=== PATIENT | female | born 1965 | race Caucasian/White ===

== ENCOUNTER 2024-04-18 22:15 | Inpatient (IN) | payer SELFPAY ==
[2024-04-18 15:45] VITALS: BP 207/66
--- NOTE | 2024-04-18 16:24 | ED.GENMED ---
History of Present Illness
General
Chief Complaint: Abdominal Symptoms
Source: patient
Exam Limitations: none
Time Seen by Provider: 04/18/24 15:57
Nursing documentation reviewed up to this point in time: agreed with
History of Present Illness
History of Present Illness:
Patient to ED with complaint of n/v. Symptoms started yesterday. Denies fever but reports chills, diaphoresis. Taking po zofran without improvement. Reports upper abdominal pain. No diarrhea. No urinary symptoms. Brought to ED by EMS for eval.
Past History
Past History
ED Past Medical History: CAD, HTN, Hypercholesterolemia and AR (2004)
ED Past Surgical History: Cardiac (Stent 2004) and Orthopedic
Social History
Tobacco: Smoker
Alcohol: None
Drug: None
Personal:
Living: alone
Review of Systems
Review of Systems
Allergies reviewed?: Yes
All Other Systems: ROS reviewed and negative except as documented in HPI and ROS
Constitutional: Reports fatigue and chills
Respiratory: Reports no symptoms
Cardiac: Reports diaphoresis
ABD/GI: Reports abdominal pain, nausea and vomiting
: Reports no symptoms
Musculoskeletal: Reports no symptoms
Skin: Reports no symptoms
Neurological: Reports weakness
Psychiatric: Reports no symptoms
Phy Exam
General Physical Exam
General Presentation: moderate distress
General age: appears stated age
General Skin: warm and dry
General Habitus: normal
General Mental: alert
Cardiovascular Exam
Cardiovascular Exam: regular rate/rhythm and no edema
Pulmonary Exam
Pulmonary Exam: no respiratory distress and chest non tender
Gastrointestinal Exam
Gastrointestinal Exam: normal bowel sounds, soft, no organomegaly, no pulsatile mass, non distended and no cva tenderness
Palpation: generalized: Moderate tenderness
Musculoskeletal Exam
Musculoskeletal Exam: full ROM and neuro vasc intact
Skin Exam
Skin Exam: normal color, warm/dry and no rash
Psychiatric Exam
Psychiatric Exam: normal mood/affect
Course
Orders/Labs/Results
Orders:
Orders
04/18/24 16:03
Urinalysis Reflex To Culture Urgent
0.9% Sodium Chloride 1000 ml [Nss] 1,000 ml IV BOLUS
04/18/24 16:29
Prochlorperazine [Compazine] 10 mg IV NOW STA
04/18/24 16:30
CT Abd/pelvis W Iv Cont Urgent
Comment:
Reason For Exam: upper abd. pain, vomiting, unable to tolerate po
04/18/24 16:53
Complete Blood Count/With Diff Urgent
Influenza A+B Rapid Molecular Urgent
ANJALI Source: Nasal Swab
Specimen Description:
04/18/24 18:24
Comprehensive Metabolic Panel Urgent
Lipase Urgent
04/18/24 20:36
Amoxicillin 875 mg/Clav 125 mg [Augmentin 875 mg/125 mg] 1 tablet PO NOW STA
04/18/24 20:44
Ondansetron Injectable [Zofran] 4 mg .ROUTE .[facility]
04/18/24 20:49
Ondansetron Injectable [Zofran] 4 mg IV NOW STA
04/18/24 21:36
LevoFLOXacin 500 MG/100 ML [Levaquin] 500 mg in 100 ml IV NOW
MetroNIDAZOLE 500 MG/100 ML [Flagyl 500 mg] 100 ml IV NOW
04/18/24 21:38
Prochlorperazine [Compazine] 10 mg IV NOW STA
04/18/24 21:45
0.9% Sodium Chloride 1000 ml [Nss] 1,000 ml IV 125 mls/hr
04/18/24 21:54
Potassium Chloride [KCl] 40 meq Dextrose 5%/Water 250 ml [D5w] 250 ml IV NOW
04/18/24 21:58
Admit/Transfer Patient As Directed
Co-Sign Provider:
Level of Care: Inpatient admission
Assign to:: Medical/Surgical
Physician / Group: savage
Diagnosis: diverticulitis
Reason for Hospitalization: diverticulitis
Expected length of stay greater than two midnights?: Yes
ELOS- Estimated Length of Stay in days: 3
I certify the patient meets the requirements for IP care: Yes
04/18/24 21:59
Code Status As Directed
Resuscitation Status: Full Code
PRN Pain Medication Management As Directed
May give lesser potent ordered pain med per pt: Yes
preference::
Protocol:: Medication orders for pain may be administered in a
manner that supports deferring to patient preference
when the pt is:
- Requesting an ordered lesser potent pain medication.
Least to most potent pain medications are defined
as: acetaminophen < NSAID < tramadol < opioids
(morphine, oxycodone, hydromorphone).
- Requesting a lesser dose of the same medication IF
ORDERED.
- Requesting a less intrusive route of administration
if both routes are prescribed by the provider (PO <
IV).
04/18/24 22:06
EKG [Electrocardiogram (*1)] Stat
Reason for Study: QTc Monitoring
04/18/24 23:10
Acetaminophen [Tylenol] 650 mg PO Q4HPRN PRN
Bisacodyl [Dulcolax] 10 mg RECTAL [id number] PRN
Docusate W/Senna [Senokot-S] 1 tablet PO BIDPRN PRN
HydrALAZINE [Apresoline] 10 mg IV Q6HPRN PRN
Ondansetron Injectable [Zofran] 4 mg IV Q6HPRN PRN
Piperacillin/Tazo 3.375 Gram [Zosyn] 3.375 gram in 50 ml IV Q6H
Polyethylene Glycol Powder [Miralax] 17 grams PO DAILYPRN PRN
04/18/24 23:10
Activity As Directed
Activity Level: As Tolerated
Vital Signs As Directed
Frequency: Per unit guidelines
DX Deep Vein Thrombosis Video Routine
04/18/24 23:21
HYDROmorphone [Dilaudid] 1 mg IV Q4HPRN PRN
04/19/24 Breakfast
NPO
Allow oral meds: Yes
Allow clear liquids: No
Basic Metabolic Panel IN AM
Complete Blood Count/With Diff IN AM
04/19/24 08:00
Aspirin Low Dose EC [Aspir Low (Enteric Coated)] 81 mg PO DAILY
Carvedilol [Coreg] 12.5 mg PO BID
Losartan [Cozaar] 100 mg PO DAILY
04/19/24 18:00
Atorvastatin [Lipitor] 10 mg PO QPM
Enoxaparin Sodium [Lovenox] 40 mg SC QPM
04/20/24 06:00
Basic Metabolic Panel IN AM
Complete Blood Count/With Diff IN AM
04/21/24 06:00
Basic Metabolic Panel IN AM
Complete Blood Count/With Diff IN AM
04/22/24 06:00
Basic Metabolic Panel IN AM
Abnormal Lab Results
04/18/24 04/18/24
16:53 18:24
WBC 14.6 H 10^3/uL
(4.8-10.8)
RBC 5.59 H 10^6/uL
(4.20-5.40)
MCV 80.1 L fL
(81.0-99.0)
Abs Immat Gran (auto) 0.1 H 10^3/uL
(0-0.05)
Absolute Neuts (auto) 13.1 H 10^3/uL
(1.4-6.5)
Neutrophils % 90.1 H %
(42.2-75.2)
Lymphocytes % 8.0 L %
(20.5-51.1)
Monocytes % 1.1 L %
(1.7-9.3)
Potassium 3.3 L mmol/L
(3.5-5.1)
Carbon Dioxide 31 H mmol/L
(22-30)
Glucose 157 H mg/dl
(70-99)
04/18/24 16:53
04/18/24 18:24
Vital Signs
Initial and Last Documented VS:
Initial Vital Signs
Temp Pulse Resp BP Pulse Ox
98.9 F 77 20 207/66 96
04/18/24 15:45 04/18/24 15:45 04/18/24 15:45 04/18/24 15:45 04/18/24 15:45
Last Documented Vital Signs
Temp Pulse Resp BP Pulse Ox
98.9 F 84 16 168/69 92
04/18/24 15:45 04/18/24 20:55 04/18/24 20:55 04/18/24 20:55 04/18/24 20:55
*Radiology
Radiology exam reviewed: radiology read reviewed
*Pulse Oximetry
Patient hypoxic: no
*Critical Care Note
Total Time (30-74mins, 75-104mins- exclusive of procedures): Not Applicable
Update Note
Update Note:
Patient to ED wtih generalized abd. pain x 24 hours. +vomiting. GIven IVF, compazine in ED with temporary improvement. She remains afebrile. Ct reveals diverticulitis. SHe continues to be unable to tolerate po fluids/meds. Will admit to
hospitalist service. IV levaquin and flagyl started in dept.
ED Attending Note
-
Portions of this chart may have been created with voice recognition software.� Occasional wrong word or��sound alike� substitutions may have occurred due to the inherent limitations of voice recognition software.
Discharge Plan
Departure
Patient Disposition: Admit
Date of Disposition: 04/18/24
Time of Disposition: 21:36
Presentation/result/management discussed w/ accepting MD/DO: Hospitalist
Patient with high blood pressure during this ER visit?: No
Condition: Good
Covid-19: Not Applicable
Discharge Problem:
Diverticulitis
Interventions
Interventions:
*Risk Screen - Suicide Last Done: 04/18/24 15:45
*General Assessment Last Done: 04/18/24 20:57
*Neglect/Abuse Screening Last Done: 04/18/24 20:57
*ED- Fall Risk Assessment Last Done: 04/18/24 20:57
*ED COVID-19 Vaccine History Last Done: 04/18/24 20:57
MF-Hhqjph-Ykysxnytdo Assessment Last Done: 04/18/24 16:59
[2024-04-18] MEDS: NSS 1000 IV ×2 (16:55→22:29)
[2024-04-18] MEDS: COMPAZINE 10 MG IV ×2 (16:55→22:33)
[2024-04-18 16:56] VITALS: BMI 55.3
[2024-04-18 17:03] VITALS: BP 157/73
[2024-04-18 17:21] LABS: % Basophils 0.3 % (0-2); % Immature Granulocytes 0.5 % (0-0.5); % Monocytes 1.1 % (1.7-9.3); % Neutrophils 90.1 % (42.2-75.2); Absolute Immature Granulocytes 0.1 10^3/uL (0-0.05); Absolute Lymphocytes 1.2 10^3/uL (1.2-3.4); Absolute Monocytes 0.2 10^3/uL (0.1-0.6); Absolute Neutrophils 13.1 10^3/uL (1.4-6.5); Hematocrit 44.8 % (37.0-47.0); Hemoglobin 15.4 g/dL (12.0-16.0); Mean Corp Hgb Conc. 34.4 g/dL (33.0-37.0); Mean Corpuscular Hgb 27.5 pg (27.0-31.0); Mean Corpuscular Volume 80.1 fL (81.0-99.0); Mean Platelet Volume 9.9 fL (7.4-10.4); Nucleated Red Blood Cells % 0 %; Platelet Count 248 10^3/uL (130-400); Red Blood Cell Count 5.59 10^6/uL (4.20-5.40); Red Cell Dist. Width 14.5 % (11.5-14.5); White Blood Cell Count 14.6 10^3/uL (4.8-10.8)
[2024-04-18 18:44] LABS: ALT (SGPT) 20 U/L (0-35); AST (SGOT) 21 U/L (14-36); Albumin 4.1 g/dl (3.5-5.0); Alkaline Phosphatase 74 U/L (38-126); Blood Urea Nitrogen 13 mg/dl (7-17); Calcium 9.3 mg/dl (8.4-10.2); Carbon Dioxide 31 mmol/L (22-30); Chloride 100 mmol/L (98-107); Estimated Creatinine Clearance > 125 ml/min; Glucose 157 mg/dl (70-99); Lipase 54 U/L (23-300); Potassium 3.3 mmol/L (3.5-5.1); Sodium 138 mmol/L (135-145); Total Bilirubin 0.8 mg/dl (0.2-1.3); Total Protein 7.2 g/dl (6.3-8.2); eGFR > 60.00
[2024-04-18] MEDS: ZOFRAN 4 MG IV (20:50)
[2024-04-18 20:55] VITALS: BP 168/69
--- NOTE | 2024-04-18 21:44 | HPS.HSE ---
Family Physician
-
Family Physician: * NONE
Chief Complaint
-
epigastric abdominal pain associated with n/v
History of Present Illness
59 year old with PMH for HTN, HLD, CAD with cardiac stents presented with n/v and epigastric abdominal pain since yesterday lunch time. denied fever. stated chills. denied MCKEON,dizzy or syncope. denied chest pain, sob. denied dysuria or hematuria.
denied diarrhea. patient stated poor oral intake.
CT with diverticulitis. received Levaquin, Flagyl, fluids, Zofran and Compazine in ER. admitting for further management.
Medical History
Past Medical History
Past Medical History: Reports Other
Additional Past Medical History:
depression
anxiety
HTN
HLD
CAD
Past Surgical History: Reports Other
Additional Past Surgical History:
cardiac stents
Social History
Tobacco: Non-smoker
Alcohol: None
Drug: None
Family History
Family History: Not pertinent
Allergies / Home Medications
Allergies reflects when Allergies were last updated in [email or web address].
Home Medications with original date entered in [email or web address]
Allergy/Medication List:
Allergies
Allergy/AdvReac Type Severity Reaction Status Date / Time
latex Allergy Rash Verified 04/18/24 16:58
Home Medications
losartan 100 mg tablet (Cozaar) 100 mg PO DAILY 05/11/16
lovastatin 20 mg tablet 20 mg PO QPM 05/11/16
aspirin 81 mg tablet,delayed release 81 mg PO DAILY 09/02/20
carvedilol 12.5 mg tablet 12.5 mg PO BID 09/02/20
hydrochlorothiazide 1 tab PO DAILY 04/18/24
ibuprofen 200 mg tablet (Advil) 400 mg PO BID 04/18/24
nifedipine 1 tab PO DAILY 04/18/24
Review of Systems
-
Constitutional: Reports No Symptoms
EENT: Reports No Symptoms
Respiratory: Reports No Symptoms
Cardiac: Reports No Symptoms
Abdomen/GI: Reports Abdominal Pain, Nausea and Vomiting
: Reports No Symptoms
Musculoskeletal: Reports No Symptoms
Skin: Reports No Symptoms
Neurological: Reports No Symptoms
Endocrine: Reports No Symptoms
Hematologic/Lymphatic: Reports No Symptoms
Psych: Reports No Symptoms
Physical Exam
Vital Signs
Vital Signs
Temp Pulse Resp BP Pulse Ox
98.9 F 84 16 168/69 92
04/18/24 15:45 04/18/24 20:55 04/18/24 20:55 04/18/24 20:55 04/18/24 20:55
Physical Exam
General: Well Developed, Well Nourished and No Apparent Distress
HEENT: NormoCephalic, Moist mucous membranes and Atraumatic
Respiratory: Clear
Cardiac: S1/S2 and Regular Rhythm; No Murmur or Rub
GI: Soft, Non Tender, Non Distended, Normal Bowel Sounds and Tender; No Organomegaly
Rectal: Deferred by Provider
Musculoskeletal: No Clubbing, No Cyanosis and No Edema
Skin: No Rash
Neuro: AO x 3 and Nonfocal/grossly intact
Psych: Calm
Laboratory Results
-
04/18/24 16:53
04/18/24 18:24
Laboratory Results
Total Bilirubin 0.8 mg/dl (0.2-1.3) 04/18/24 18:24
AST 21 U/L (14-36) 04/18/24 18:24
ALT 20 U/L (0-35) 04/18/24 18:24
Alkaline Phosphatase 74 U/L (38-126) 04/18/24 18:24
Lipase 54 U/L (23-300) 04/18/24 18:24
Data Reviewed
-
CT Scan: Report Reviewed by me
Lab Data: Labs Reviewed by me
Impression/Plan
-
#diverticulitis
-NPO
-fluid continued for hydration
-Zofran prn for n/v
-Dilaudid prn for pain
-wbc 14.6
-zosyn continued
-Ct abdomen pelvis with the impression of findings compatible with diverticulitis, near the junction of the sigmoid colon and the distal descending colon.
#hypokalemia likely from N/v
-oral kcl
-BMP in am
# h/o CAD with PCI
-asa continued
# Essential HTN
-losartan and coreg continued with hold parameters
-added hydralazine if SBP>160
-patient does not know the strength of the medication.
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
DVT ppx: lovenox SQ
--- NOTE | 2024-04-18 21:55 | PHANOTE ---
med rec tech(04/18/24)-Patient does not have recent records on [facility] or [facility] to verify medication list. Interviewed patient to get medication names and frequencies, but cannot confirm dosage on medications. Patient also mentioned Percocet which
was not in PDMP, when pressed admitted she did not actually take any.
--- NOTE | 2024-04-18 21:58 | W.PN.UPDATE ---
Update Note
Progress Note Update
This is an addendum to the H&P written by Mary Padron on 04/18/2024. Patient seen and examined independently with SHAFT REPAIRER.
59-year-old female past medical history of CAD, gastric ulcer, fatty liver, hypertension, hyperlipidemia, presenting with nausea and vomiting, chills and diaphoresis and upper abdominal pain.
Patient's blood pressure of 207/66.
Labs show leukocytosis. Potassium 3.3.
CT abdomen pelvis shows diverticulitis.
Patient with acute diverticulitis. Hypokalemia secondary to vomiting/hydrochlorothiazide use.
N.p.o., IV fluids, Zosyn. Pain control. Potassium repletion.
[2024-04-18] MEDS: LEVAQUIN 100 IV (22:31)
--- NOTE | 2024-04-18 23:00 | PTCARENOTE ---
Pt arrived to [facility] from ED, ambulates independently. VSS, 10/23 epigastric pain relieved by PRN IV Dilaudid 1mg. Plan of care reviewed with pt. Pt oriented to room, call duque within reach.
[2024-04-18 23:18] VITALS: BMI 53.7
[2024-04-18] MEDS: DILAUDID 1 MG IV (23:29)
[2024-04-18] MEDS: KCL 270 MEQ IV (23:53)
[2024-04-18 23:57] VITALS: BP 152/92
[2024-04-19 02:27] LABS: Urine Albumin 3+ (Neg - Trace); Urine Bilirubin Negative (Negative); Urine Character Slightly Cloudy (Clear); Urine Color Yellow; Urine Glucose Negative (Negative); Urine Ketone 1+ (Negative); Urine Leukocyte Negative (Negative); Urine Nitrite Negative (Negative); Urine Occult Blood 4+ (Negative); Urine Specific Gravity 1.015 (<1.030); Urine Urobilinogen Negative (Neg - 1+); Urine pH 6.5 (5.0-9.0)
[2024-04-19 02:34] LABS: Urine Squamous Cell >30 /LPF (Few)
[2024-04-19 02:36] LABS: Urine Amorphous Seen
[2024-04-19 02:38] LABS: Urine Bacteria Moderate (Negative)
[2024-04-19] MEDS: ZOFRAN 4 MG IV ×4 (03:15→21:18)
[2024-04-19] MEDS: DILAUDID 1 MG IV ×5 (03:42→21:17)
[2024-04-19] MEDS: ZOSYN 50 IV ×4 (04:19→21:18)
[2024-04-19 07:07] VITALS: BP 150/82
[2024-04-19 07:19] LABS: % Basophils 0.2 % (0-2); % Immature Granulocytes 2.2 % (0-0.5); % Lymphocytes 10.9 % (20.5-51.1); % Monocytes 5.2 % (1.7-9.3); % Neutrophils 81.5 % (42.2-75.2); Absolute Immature Granulocytes 0.3 10^3/uL (0-0.05); Absolute Lymphocytes 1.4 10^3/uL (1.2-3.4); Absolute Monocytes 0.7 10^3/uL (0.1-0.6); Absolute Neutrophils 10.6 10^3/uL (1.4-6.5); Hematocrit 38.7 % (37.0-47.0); Hemoglobin 13.3 g/dL (12.0-16.0); Mean Corp Hgb Conc. 34.4 g/dL (33.0-37.0); Mean Corpuscular Hgb 27.9 pg (27.0-31.0); Mean Corpuscular Volume 81.1 fL (81.0-99.0); Mean Platelet Volume 10.2 fL (7.4-10.4); Nucleated Red Blood Cells % 0 %; Platelet Count 219 10^3/uL (130-400); Red Blood Cell Count 4.77 10^6/uL (4.20-5.40); Red Cell Dist. Width 14.6 % (11.5-14.5)
[2024-04-19 07:43] LABS: Blood Urea Nitrogen 14 mg/dl (7-17); Carbon Dioxide 30 mmol/L (22-30); Chloride 101 mmol/L (98-107); Estimated Creatinine Clearance 119 ml/min; Glucose 125 mg/dl (70-99); Potassium 3.4 mmol/L (3.5-5.1); Sodium 140 mmol/L (135-145); eGFR > 60.00
[2024-04-19 07:44] LABS: Calcium 9.2 mg/dl (8.4-10.2)
[2024-04-19] MEDS: COREG 12.5 MG PO ×2 (08:31→20:27)
[2024-04-19] MEDS: ASPIR LOW (ENTERIC COATED) 81 MG PO (08:31)
[2024-04-19] MEDS: COZAAR 100 MG PO (08:31)
[2024-04-19] MEDS: NSS 1000 IV ×2 (08:31→15:47)
--- NOTE | 2024-04-19 08:58 | W.PN.HOSP.TC ---
Today's Communication/Plan
-
Add IV PPI
c/w pain control & anti-nausea medicine
IV ABx
Only Sips of clears/ ice , no oral diet
Assessment / Plan
Assessment / Plan
Physical Exam
General: Well Developed, Well Nourished and No Apparent Distress
HEENT: Normocephalic, Moist mucous membranes and Atraumatic
Respiratory: Clear
Cardiac: S1/S2 and Regular Rhythm; No Murmur or Rub
GI: Soft, Non Tender, Non Distended. Tenderness in mid abdomen, left abdomen
Rectal: No bleeding
Musculoskeletal: No Clubbing, No Cyanosis and No Edema
Skin: No Rash
Neuro: AO x 3 and Nonfocal/grossly intact
Psych: Calm
#Acute diverticulitis, per CT it is near the junction of the sigmoid colon and the distal descending colon.
She is still with nausea, pain
Not toxic appearing. Abdomen is not distended.
c/w bowel rest
IVF
IV Abx
Anti- nausea medication
Consulted GI, appreciate input.
# Hx of gastric ulcer
Add IV PPI
#hypokalemia likely from N/v
-oral KCl
-BMP in am
# h/o CAD with PCI
-asa continued
# Essential HTN
-losartan and coreg continued with hold parameters
-added hydralazine if SBP>160
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
DVT ppx: Lovenox SQ
Total time spent to see the patient, examine the patient, review data and lab results, discuss treatment plan with patient and nursing staff around 55 minutes
Anticipated Discharge: > 48 hours
Subjective/Interval History
-
Date of Service: April 19, 2024
No chest pain
No sob
No fevers
Objective Data
-
Labs:
Laboratory Results
04/19/24
07:01
WBC 13.0 H
Hgb 13.3
Hct 38.7
Plt Count 219
Sodium 140
Potassium 3.4 L
Chloride 101
Carbon Dioxide 30
BUN 14
Creatinine 0.7
Glucose 125 H
Calcium 9.2
Vital Signs:
Vital Signs
Temp Pulse Resp BP Pulse Ox
98.6 F 76 20 150/82 93
04/19/24 07:07 04/19/24 07:07 04/19/24 07:07 04/19/24 07:07 04/19/24 07:07
I&O
04/18/24 04/19/24 04/20/24
06:59 06:59 06:59
Intake Total 1360 / 1360
Output Total 250 / 250
Balance 1110 / 1110
[2024-04-19] MEDS: NSS (PRESERVATIVE FREE) 10 ML IV (11:02)
[2024-04-19] MEDS: PROTONIX IV 40 MG IV (11:02)
--- NOTE | 2024-04-19 14:05 | CM ---
manager of change reviewed patient's chart and met with patient and patient reports that she lives alone in a 2 story home, patient is independent with adl's and ambulation, no dme, patient drives. home no needs when stable, per patient she uses [facility]
pharmacy. Patient has no insurance.
Plan; Home no needs when stable.
--- NOTE | 2024-04-19 15:40 | CON.GI ---
Consultation
-
Date/Time Consultation Requested: 04/19/24 at 7am
Date/Time Consultation Performed: 04/19/24 at 9am
Requesting Provider: Rene
Performing Provider: Rebecca
Reason for Consultation: diverticulitis
Medical History
Chief Complaint / HPI
Chief Complaint: abd pain
History of Present Illness:
This patient is a 59-year-old woman with a history of hypertension, hyperlipidemia and coronary artery disease who had acute epigastric abdominal pain without fevers or chills. She did not have any overt change in bowel movements but had not had
any. She does not have an NSAID history recently but did have a history of a gastric ulcer years ago and actually had an endoscopy that showed a solitary gastric ulcer. The report states that it was to be repeated in 2 months but she never
followed up. Review of records also shows a CAT scan in 2017 that had possible diverticulitis which was read as possibly mild. She had abdominal pain at that time. She did have a CAT scan in the ER that showed diverticulitis of the distal
descending/sigmoid colon. She has not had a recent colonoscopy.
Past Medical History
Past Medical History: HTN and Other (Hyperlipidemia, coronary artery disease, depression, anxiety)
Past Surgical History: Other (Cardiac catheterization)
Social History
Tobacco: Non-Smoker
Family History
Family History: Reviewed & Not Pertinent
Allergies / Home Medications
Allergy/AdvReac Type Severity Reaction Status Date / Time
latex Allergy Rash Verified 04/18/24 16:58
�Medication �Instructions �Recorded
losartan 100 mg tablet (Cozaar) 100 mg PO DAILY Blood Pressure 05/11/16
lovastatin 20 mg tablet 20 mg PO QPM High Cholesterol 05/11/16
aspirin 81 mg tablet,delayed 81 mg PO DAILY Blood Clot 09/02/20
release Prevention/Tx
carvedilol 12.5 mg tablet 12.5 mg PO BID Blood Pressure 09/02/20
hydrochlorothiazide 1 tab PO DAILY Fluid 04/18/24
Retention/Swelling
ibuprofen 200 mg tablet (Advil) 400 mg PO BID Pain 04/18/24
nifedipine 1 tab PO DAILY Blood Pressure 04/18/24
Review of Systems
-
All other systems: A 12 pt ROS was Negative except as stated above in HPI
Vital Signs
Temp Pulse Resp BP Pulse Ox
98.6 F 76 20 150/82 93
04/19/24 07:07 04/19/24 07:07 04/19/24 07:07 04/19/24 07:07 04/19/24 07:07
Physical Exam
Exam
General: No Apparent Distress
HEENT: Anicteric
Cardiac: S1/S2
GI: Soft and Non Tender (Tender in the epigastric mid abdominal area)
Neuro: Awake and Alert
Psych: Calm
Results
WBC 13.0 10^3/uL (4.8-10.8) H 04/19/24 07:01
Hgb 13.3 g/dL (12.0-16.0) 04/19/24 07:01
Hct 38.7 % (37.0-47.0) 04/19/24 07:01
MCV 81.1 fL (81.0-99.0) 04/19/24 07:01
Plt Count 219 10^3/uL (130-400) 04/19/24 07:01
Absolute Neuts (auto) 10.6 10^3/uL (1.4-6.5) H 04/19/24 07:01
Sodium 140 mmol/L (135-145) 04/19/24 07:01
Potassium 3.4 mmol/L (3.5-5.1) L 04/19/24 07:01
Chloride 101 mmol/L (98-107) 04/19/24 07:01
Carbon Dioxide 30 mmol/L (22-30) 04/19/24 07:01
BUN 14 mg/dl (7-17) 04/19/24 07:01
Creatinine 0.7 mg/dL (0.6-1.0) 04/19/24 07:01
Calcium 9.2 mg/dl (8.4-10.2) 04/19/24 07:01
Total Bilirubin 0.8 mg/dl (0.2-1.3) 04/18/24 18:24
AST 21 U/L (14-36) 04/18/24 18:24
ALT 20 U/L (0-35) 04/18/24 18:24
Alkaline Phosphatase 74 U/L (38-126) 04/18/24 18:24
Lipase 54 U/L (23-300) 04/18/24 18:24
Assessment / Plan
-
This patient is a 59-year-old woman with a history of diverticulitis who also has a history of a gastric ulcer back in 2020. At that time it was due to NSAIDs which she is not taking. For now would do the following:
1. pain control
2. npo
3. antibiotics
4. IVF
5. follow wbc
6. will eventually need a colonoscopy in 6-8 weeks and at that time I would add an endoscopy as she has never followed up with a repeat endoscopy she needed to ensure ulcer healing. In addition her pain is more epigastric in location.
Data Reviewed
-
CT Scan: Report Reviewed by me
-
-
Thank you for consultation and allowing me to participate in the patient's care. Please call the health communications specialist GI physician during the after hours with any questions or concerns.
[2024-04-19 15:52] VITALS: BP 134/80
[2024-04-19] MEDS: LIPITOR 10 MG PO (17:13)
[2024-04-19 20:18] VITALS: BP 146/83
[2024-04-19] MEDS: HYDROCORTISONE 1% CREAM 1 APPLIC TOPICAL (22:38)
[2024-04-19 23:18] VITALS: BP 139/71
[2024-04-20] MEDS: DILAUDID 1 MG IV ×5 (01:53→20:12)
[2024-04-20] MEDS: ZOSYN 50 IV ×4 (03:20→21:57)
[2024-04-20] MEDS: NSS 1000 IV (04:14)
[2024-04-20] MEDS: ZOFRAN 4 MG IV ×3 (05:09→20:13)
[2024-04-20 05:31] LABS: % Basophils 0.6 % (0-2); % Eosinophils 0.6 % (0-6); % Immature Granulocytes 0.4 % (0-0.5); % Lymphocytes 21.1 % (20.5-51.1); % Monocytes 4.3 % (1.7-9.3); Absolute Basophils 0.1 10^3/uL (0-0.2); Absolute Eosinophils 0.1 10^3/uL (0-0.7); Absolute Lymphocytes 2.1 10^3/uL (1.2-3.4); Absolute Monocytes 0.4 10^3/uL (0.1-0.6); Absolute Neutrophils 7.4 10^3/uL (1.4-6.5); Hematocrit 38.7 % (37.0-47.0); Hemoglobin 12.7 g/dL (12.0-16.0); Mean Corp Hgb Conc. 32.8 g/dL (33.0-37.0); Mean Corpuscular Hgb 27.3 pg (27.0-31.0); Mean Platelet Volume 10.5 fL (7.4-10.4); Nucleated Red Blood Cells % 0 %; Platelet Count 197 10^3/uL (130-400); Red Blood Cell Count 4.66 10^6/uL (4.20-5.40); Red Cell Dist. Width 14.9 % (11.5-14.5); White Blood Cell Count 10.2 10^3/uL (4.8-10.8)
[2024-04-20 05:51] LABS: Blood Urea Nitrogen 19 mg/dl (7-17); Calcium 8.8 mg/dl (8.4-10.2); Carbon Dioxide 29 mmol/L (22-30); Chloride 102 mmol/L (98-107); Estimated Creatinine Clearance 104 ml/min; Glucose 99 mg/dl (70-99); Potassium 3.4 mmol/L (3.5-5.1); Sodium 139 mmol/L (135-145); eGFR > 60.00
[2024-04-20 07:50] VITALS: BP 172/93
[2024-04-20] MEDS: KCL 20 MEQ PO (08:52)
[2024-04-20] MEDS: COZAAR 100 MG PO (08:52)
[2024-04-20] MEDS: ASPIR LOW (ENTERIC COATED) 81 MG PO (08:53)
[2024-04-20] MEDS: COREG 12.5 MG PO ×2 (08:53→20:07)
[2024-04-20] MEDS: PROTONIX IV 40 MG IV (08:53)
[2024-04-20] MEDS: TYLENOL 1000 MG PO ×3 (08:53→21:58)
[2024-04-20] MEDS: NSS (PRESERVATIVE FREE) 10 ML IV (08:54)
--- NOTE | 2024-04-20 09:30 | W.PN.HOSP.TC ---
Today's Communication/Plan
-
Liquid diet
Replace K
c/w IV Abx
Encourage ambulation
Assessment / Plan
Assessment / Plan
Physical Exam
General: Well Developed, Well Nourished and No Apparent Distress
HEENT: Normocephalic, Moist mucous membranes and Atraumatic
Respiratory: Clear
Cardiac: S1/S2 and Regular Rhythm; No Murmur or Rub
GI: Soft, Non Tender, Non Distended. Tenderness in left abdomen
Rectal: No bleeding
Musculoskeletal: No Clubbing, No Cyanosis and No Edema
Skin: No Rash
Neuro: AO x 3 and Nonfocal/grossly intact
Psych: Calm
#Acute diverticulitis, per CT it is near the junction of the sigmoid colon and the distal descending colon.
Less pain, no nausea
Not toxic appearing. Abdomen is not distended. WBC is normal.
s/p NPO, she wants to try liquid diet
IVF
IV Abx
Urine culture mixed berto
Anti- nausea medication
Consulted GI, appreciate input.
# Hx of gastric ulcer
Added IV PPI
#hypokalemia likely from N/v
-oral KCl
# h/o CAD with PCI
-asa continued
# Essential HTN
-losartan and Coreg continued with hold parameters
-added hydralazine if SBP>160
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
DVT ppx: Lovenox SQ
Total time spent to see the patient, examine the patient, review data and lab results, discuss treatment plan with patient and nursing staff around 55 minutes
Anticipated Discharge: Within 24 hours
Subjective/Interval History
-
Date of Service: April 20, 2024
She is feeling better
No nausea
less abd pain
Wants to try liquid diet
Objective Data
-
Labs:
Laboratory Results
04/20/24
05:04
WBC 10.2
Hgb 12.7
Hct 38.7
Plt Count 197
Sodium 139
Potassium 3.4 L
Chloride 102
Carbon Dioxide 29
BUN 19 H
Creatinine 0.8
Glucose 99
Calcium 8.8
Vital Signs:
Vital Signs
Temp Pulse Resp BP Pulse Ox
98.3 F 72 20 172/93 95
04/20/24 07:50 04/20/24 08:53 04/20/24 07:50 04/20/24 08:53 04/20/24 07:50
I&O
04/19/24 04/20/24 04/21/24
06:59 06:59 07:59
Intake Total 1360 / 1360
Output Total 250 / 250
Balance 1110 / 1110
--- NOTE | 2024-04-20 09:54 | W.PN.GI.CBS2 ---
Today's Communication / Plan
-
clear liquids
Assessment / Plan
-
This patient is a 59-year-old woman with a history of diverticulitis who also has a history of a gastric ulcer back in 2020. At that time it was due to NSAIDs which she is not taking. For now would do the following:
1. pain control
2. can start clear liquids
3. antibiotics
4. IVF
5. wbc improved
6. will eventually need a colonoscopy in 6-8 weeks and at that time I would add an endoscopy as she has never followed up with a repeat endoscopy she needed to ensure ulcer healing. In addition her pain is more epigastric in location.
Subjective
Subjective
Date of Service: April 20, 2024
Pt feeling better wants liquids
Objective
Data Reviewed
Laboratory Data:
Laboratory Results
04/20/24 05:04
04/20/24 05:04
Laboratory Results
Total Bilirubin 0.8 mg/dl (0.2-1.3) 04/18/24 18:24
AST 21 U/L (14-36) 04/18/24 18:24
ALT 20 U/L (0-35) 04/18/24 18:24
Alkaline Phosphatase 74 U/L (38-126) 04/18/24 18:24
Lipase 54 U/L (23-300) 04/18/24 18:24
Vital Signs and I&O:
Vital Signs
Temp Pulse Resp BP Pulse Ox
98.3 F 72 20 172/93 95
04/20/24 07:50 04/20/24 08:53 04/20/24 07:50 04/20/24 08:53 04/20/24 07:50
I&O
04/19/24 04/20/24 04/21/24
06:59 06:59 07:59
Intake Total 1360 / 1360
Output Total 250 / 250
Balance 1110 / 1110
Physical Exam
Physical Exam
HEENT: Anicteric
GI: Soft and Tender (improved but present in epigastric area)
Neuro: Non Focal
--- NOTE | 2024-04-20 10:00 | PTCARENOTE ---
Assumed care of pt from previous nurse. pt with discomfort to abdomen. managed with dilaudid with positive results. Pt with no vomiting, nausea managed with zofran. Pt advanced to clear liquid diet, will see has she tolerates it. Pt call duque is
within reach, pt rings tevin. will cont to monitor.
[2024-04-20] MEDS: NSS IV ×2 (14:11→15:51)
[2024-04-20] MEDS: APRESOLINE 10 MG IV (15:30)
[2024-04-20 15:54] VITALS: BP 178/95
[2024-04-20] MEDS: LIPITOR 10 MG PO (17:57)
[2024-04-20] MEDS: PROCARDIA XL (EXTENDED RELEASE) 60 MG PO (18:02)
[2024-04-20 19:17] VITALS: BP 146/76
[2024-04-20] MEDS: FLUSH (NSS) 2 FLUSH IV ×2 (20:14→21:58)
[2024-04-20 23:28] VITALS: BP 142/65
[2024-04-21] MEDS: DILAUDID 1 MG IV ×5 (01:39→23:23)
[2024-04-21] MEDS: FLUSH (NSS) 2 FLUSH IV ×2 (01:41→04:57)
[2024-04-21] MEDS: ZOFRAN 4 MG IV ×2 (04:56→18:47)
[2024-04-21] MEDS: ZOSYN 50 IV ×4 (04:56→23:14)
[2024-04-21 06:58] LABS: % Basophils 0.6 % (0-2); % Eosinophils 2.3 % (0-6); % Lymphocytes 23.1 % (20.5-51.1); % Monocytes 4.4 % (1.7-9.3); % Neutrophils 68.6 % (42.2-75.2); Absolute Basophils 0.1 10^3/uL (0-0.2); Absolute Eosinophils 0.2 10^3/uL (0-0.7); Absolute Immature Granulocytes 0.1 10^3/uL (0-0.05); Absolute Lymphocytes 2.3 10^3/uL (1.2-3.4); Absolute Monocytes 0.4 10^3/uL (0.1-0.6); Absolute Neutrophils 6.7 10^3/uL (1.4-6.5); Hematocrit 37.7 % (37.0-47.0); Hemoglobin 12.6 g/dL (12.0-16.0); Mean Corp Hgb Conc. 33.4 g/dL (33.0-37.0); Mean Corpuscular Hgb 27.5 pg (27.0-31.0); Mean Corpuscular Volume 82.3 fL (81.0-99.0); Mean Platelet Volume 10.6 fL (7.4-10.4); Nucleated Red Blood Cells % 0 %; Platelet Count 193 10^3/uL (130-400); Red Blood Cell Count 4.58 10^6/uL (4.20-5.40); Red Cell Dist. Width 14.6 % (11.5-14.5); White Blood Cell Count 9.8 10^3/uL (4.8-10.8)
[2024-04-21 07:00] VITALS: BP 142/66
--- NOTE | 2024-04-21 07:13 | W.PN.GI.CBS2 ---
Today's Communication / Plan
-
low residue diet
Assessment / Plan
-
This patient is a 59-year-old woman with a history of diverticulitis who also has a history of a gastric ulcer back in 2020. At that time it was due to NSAIDs which she is not taking. For now would do the following:
1 advance to low residue diet
2. will need outpatient f/u but is in the process of getting insurance. she knows she will need an EGD/colonoscopy in 8 weeks (also has hx) and we will make an appt for that time. she intends to have insurance then.
no further recs, will sign off.
Subjective
Subjective
Date of Service: April 21, 2024
Pt feels much better, minimal pain. wants to eat.
Objective
Data Reviewed
Laboratory Data:
Laboratory Results
04/21/24 05:58
Laboratory Results
Total Bilirubin 0.8 mg/dl (0.2-1.3) 04/18/24 18:24
AST 21 U/L (14-36) 04/18/24 18:24
ALT 20 U/L (0-35) 04/18/24 18:24
Alkaline Phosphatase 74 U/L (38-126) 04/18/24 18:24
Lipase 54 U/L (23-300) 04/18/24 18:24
Vital Signs and I&O:
Vital Signs
Temp Pulse Resp BP Pulse Ox
99.2 F 64 16 142/65 98
04/20/24 23:28 04/20/24 23:28 04/20/24 23:28 04/20/24 23:28 04/20/24 23:28
I&O
04/20/24 04/21/24 04/22/24
05:59 06:59 06:59
Intake Total
Balance
Physical Exam
Physical Exam
GI: Soft, Non Distended and Tender (mild epigastric tenderness)
Neuro: Non Focal
[2024-04-21 07:25] LABS: Blood Urea Nitrogen 11 mg/dl (7-17); Calcium 8.8 mg/dl (8.4-10.2); Carbon Dioxide 30 mmol/L (22-30); Chloride 100 mmol/L (98-107); Estimated Creatinine Clearance 119 ml/min; Glucose 101 mg/dl (70-99); Potassium 3.1 mmol/L (3.5-5.1); Sodium 139 mmol/L (135-145); eGFR > 60.00
[2024-04-21] MEDS: COZAAR 100 MG PO (09:09)
[2024-04-21] MEDS: COREG 12.5 MG PO ×2 (09:10→23:16)
[2024-04-21] MEDS: ASPIR LOW (ENTERIC COATED) 81 MG PO (09:10)
[2024-04-21] MEDS: NSS (PRESERVATIVE FREE) 10 ML IV (09:10)
[2024-04-21] MEDS: TYLENOL 1000 MG PO ×3 (09:10→23:13)
[2024-04-21] MEDS: PROTONIX IV 40 MG IV (09:10)
[2024-04-21] MEDS: KCL 40 MEQ PO (09:25)
--- NOTE | 2024-04-21 09:26 | W.PN.HOSP.TC ---
Today's Communication/Plan
-
try low residue diet
Replace K
restart Nifedipine
Assessment / Plan
Assessment / Plan
Physical Exam
General: Well Developed, Well Nourished and No Apparent Distress
HEENT: Normocephalic, Moist mucous membranes and Atraumatic
Respiratory: Clear
Cardiac: S1/S2, ectopic.
GI: Soft, Non Tender, Non Distended. No tenderness.
Rectal: No bleeding
Musculoskeletal: No Clubbing, No Cyanosis and No Edema
Skin: No Rash.
Neuro: AO x 3 and Nonfocal/grossly intact
Psych: Calm
#Acute diverticulitis, per CT it is near the junction of the sigmoid colon and the distal descending colon.
Much less abdominal pain
No fevers
No nausea, tolerated liquid well, passing gas and had normal BM.
Not toxic appearing. Abdomen is not distended. WBC is normal.
did well with full liquid diet
stop IVF, try low residue diet today
IV Abx
Urine culture mixed berto
Anti- nausea medication
Consulted GI, appreciate input.
#Multiple PVC
We did an EKG and confirmed that. Will just monitor for now as she is asymptomatic
# Hx of gastric ulcer
Added IV PPI
#hypokalemia
-oral KCl
# h/o CAD with PCI
-asa continued
# Essential HTN
uncontrolled
-losartan and Coreg continued with hold parameters
order Nifedipine SR 60 mg QD
-added hydralazine if SBP>160
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
# HLD, c/w [employer] statin
DVT ppx: Lovenox SQ
Total time spent to see the patient, examine the patient, review data and lab results, discuss treatment plan with patient and nursing staff around 55 minutes
Anticipated Discharge: Within 24 hours
Subjective/Interval History
-
Date of Service: April 21, 2024
No chest pain
Much less abdominal pain
No fevers
No nausea, tolerated liquid well, passing gas and had normal BM.
Objective Data
-
Labs:
Laboratory Results
04/21/24
05:58
WBC 9.8
Hgb 12.6
Hct 37.7
Plt Count 193
Sodium 139
Potassium 3.1 L
Chloride 100
Carbon Dioxide 30
BUN 11
Creatinine 0.7
Glucose 101 H
Calcium 8.8
Vital Signs:
Vital Signs
Temp Pulse Resp BP Pulse Ox
98.5 F 63 16 142/66 92
04/21/24 07:00 04/21/24 07:00 04/21/24 07:00 04/21/24 07:00 04/21/24 07:00
I&O
04/20/24 04/21/24 04/22/24
05:59 06:59 06:59
Intake Total
Balance
[2024-04-21] MEDS: PROCARDIA XL (EXTENDED RELEASE) 60 MG PO (11:12)
[2024-04-21] MEDS: VISBIOME 2 CAP PO (11:12)
[2024-04-21 11:21] VITALS: BP 149/62
[2024-04-21 15:00] VITALS: BP 143/73
--- NOTE | 2024-04-21 16:04 | CM ---
CM reviewed chart, anticipated discharge within 24 hours, home no needs. CM will continue to follow for all discharge planning needs.
Plan; home no needs.
[2024-04-21] MEDS: LIPITOR 10 MG PO (18:44)
[2024-04-21 23:22] VITALS: BP 147/78
[2024-04-22] MEDS: ZOSYN 50 IV ×2 (04:59→09:12)
[2024-04-22 07:00] VITALS: BP 167/72
[2024-04-22 08:24] LABS: Hematocrit 40.8 % (37.0-47.0); Hemoglobin 13.7 g/dL (12.0-16.0); Mean Corp Hgb Conc. 33.6 g/dL (33.0-37.0); Mean Corpuscular Hgb 27.6 pg (27.0-31.0); Mean Corpuscular Volume 82.3 fL (81.0-99.0); Mean Platelet Volume 10.6 fL (7.4-10.4); Platelet Count 206 10^3/uL (130-400); Red Blood Cell Count 4.96 10^6/uL (4.20-5.40); Red Cell Dist. Width 14.5 % (11.5-14.5); White Blood Cell Count 9.5 10^3/uL (4.8-10.8)
[2024-04-22 08:27] VITALS: BP 167/72
[2024-04-22] MEDS: ASPIR LOW (ENTERIC COATED) 81 MG PO (08:32)
[2024-04-22] MEDS: COZAAR 100 MG PO (08:32)
[2024-04-22] MEDS: COREG 12.5 MG PO (08:32)
[2024-04-22] MEDS: TYLENOL 1000 MG PO (08:33)
[2024-04-22] MEDS: VISBIOME 2 CAP PO (08:33)
[2024-04-22] MEDS: PROTONIX IV 40 MG IV (08:33)
[2024-04-22] MEDS: NSS (PRESERVATIVE FREE) 10 ML IV (08:33)
[2024-04-22] MEDS: PROCARDIA XL (EXTENDED RELEASE) 60 MG PO (08:33)
[2024-04-22 08:44] LABS: Blood Urea Nitrogen 11 mg/dl (7-17); Calcium 9.1 mg/dl (8.4-10.2); Carbon Dioxide 26 mmol/L (22-30); Chloride 101 mmol/L (98-107); Estimated Creatinine Clearance 104 ml/min; Glucose 103 mg/dl (70-99); Potassium 3.3 mmol/L (3.5-5.1); Sodium 136 mmol/L (135-145); eGFR > 60.00
--- NOTE | 2024-04-22 12:31 | W.PN.HOSP.TC ---
Addendum entered and electronically signed by Jimi Cancino MD 04/22/24 17:22:
[id number]
Original Note:
Today's Communication/Plan
-
Augmentin
no more NSAIDS
f/u GI for EGD/C-Scope
f/u pcp and cards outpt
Assessment / Plan
Assessment / Plan
Physical Exam
General: Well Developed, Well Nourished and No Apparent Distress
HEENT: Normocephalic, Moist mucous membranes and Atraumatic
Respiratory: Clear
Cardiac: S1/S2, ectopic.
GI: Soft, Non Tender, Non Distended. No tenderness.
Rectal: No bleeding
Musculoskeletal: No Clubbing, No Cyanosis and No Edema
Skin: No Rash.
Neuro: AO x 3 and Nonfocal/grossly intact
Psych: Calm
#Acute diverticulitis, per CT it is near the junction of the sigmoid colon and the distal descending colon.
-on Zosyn - Complete Augmentin 750mg q12h for additional 7 days to complete 10 day course
-F/u GI for EGD/Colonoscopy outpt
-LRD
#Dense Cardiac Calcifications
-f/u cards outpt
no chest pain
#Multiple PVC
We did an EKG and confirmed that. Will just monitor for now as she is asymptomatic
-f/u cards outpt
# Hx of gastric ulcer
-stop NSAIDS
-F/u GI outpt for EGD
#hypokalemia
-Monitor and replete
# h/o CAD with PCI
-asa continued
# Essential HTN
uncontrolled
-losartan and Coreg continued with hold parameters
order Nifedipine SR 60 mg QD
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
# HLD, c/w [employer] statin
DVT ppx: Lovenox SQ
More than 30 minutes spent in discharge including
Final examination of the patient
Summarizing hospital stay
Instructions for continuing care to all relevant caregivers
Preparation of discharge records, prescriptions, and referral forms
Total time spent (36 in minutes):
Anticipated Discharge: Today
Subjective/Interval History
-
Date of Service: April 22, 2024
Feels better, tolerating regular diet
Objective Data
-
Labs:
Laboratory Results
04/22/24
07:36
WBC 9.5
Hgb 13.7
Hct 40.8
Plt Count 206
Sodium 136
Potassium 3.3 L
Chloride 101
Carbon Dioxide 26
BUN 11
Creatinine 0.8
Glucose 103 H
Calcium 9.1
Vital Signs:
Vital Signs
Temp Pulse Resp BP Pulse Ox
98.7 F 67 19 167/72 92
04/22/24 07:00 04/22/24 07:00 04/22/24 07:00 04/22/24 07:00 04/22/24 08:30
I&O
04/21/24 04/22/24 04/23/24
06:59 06:59 06:59
Intake Total 650 / 650
Balance 650 / 650
Review of Systems
-
History Source: Patient
All other systems: Not reviewed unless documented
Data Reviewed
-
CT Scan: Report Reviewed by me
Labs: Labs Reviewed by me
--- NOTE | 2024-04-22 12:37 | CM ---
Chart reviewed, home no needs.
Plan; Home no needs.
--- NOTE | 2024-04-22 12:41 | W.DS.TRANS ---
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
-
Discharge Instructions:
Discharge Diagnosis/Procedures #Acute diverticulitis
Diet Low Residue
Activity As tolerated
Driving Restrictions No driving
Blood Work cbc and cmp in 1 week with pcp
Others Tests F/u - need an EGD/colonoscopy in 8 weeks
Dense coronary artery calcifications. Please
correlate with symptoms of and risk factors for
coronary artery disease, with further workup as
clinically appropriate.F/u Cardiology outpatient
Instructions: Diverticulitis - Discharge instructions
Stand-Alone Forms:
Changes to Home Medications: Yes
Discharge Medications:
DC Medications w/original date entered in [employer]
losartan 100 mg tablet (Cozaar) 100 mg PO DAILY Blood Pressure 05/11/16
lovastatin 20 mg tablet 20 mg PO QPM High Cholesterol 05/11/16
aspirin 81 mg tablet,delayed release 81 mg PO DAILY Blood Clot Prevention/Tx 09/02/20
carvedilol 12.5 mg tablet 12.5 mg PO BID Blood Pressure 09/02/20
hydrochlorothiazide 1 tab PO DAILY Fluid Retention/Swelling 04/18/24
nifedipine 60 mg PO DAILY Blood Pressure 04/18/24
Lactobac/Bifidobac [Visbiome] 2 cap PO DAILY #20 caps 04/22/24
amoxicillin 875 mg-potassium clavulanate 125 mg tablet 1 tab PO Q12H 7 days #14 tabs 04/22/24
Home Medication Changes
Lactobac/Bifidobac [Visbiome] 2 cap PO DAILY #20 caps 04/22/24
amoxicillin 875 mg-potassium clavulanate 125 mg tablet 1 tab PO Q12H 7 days #14 tabs 04/22/24
Pending Results: No
[2024-04-22] MEDS: KCL ELIXIR 40 MEQ PO (12:43)
[2024-04-22 12:50] VITALS: BP 129/59
== END 2024-04-22 13:12 | disposition home or self-care (01) | DRG 392 ==
LOC: 4 WEST ACU 22:15
PROVIDERS: Internal Medicine; Nurse Practitioner; Registered Nurse; ADMITTING PHYSICIAN Hospitalist; ATTENDING PHYSICIAN Internal Medicine; EMERGENCY PHYSICIAN Student in an Organized Health Care Education/Training Program; OTHER PHYSICIAN Internal Medicine
DX: K57.32 Diverticulitis of large intestine without perforation or abscess without bleeding (principal); Z68.43 Body mass index [BMI] 50.0-59.9, adult; I10 Essential (primary) hypertension; I25.10 Atherosclerotic heart disease of native coronary artery without angina pectoris; E78.00 Pure hypercholesterolemia, unspecified; E87.6 Hypokalemia; F32.A Depression, unspecified; F41.9 Anxiety disorder, unspecified; I49.3 Ventricular premature depolarization; E66.9 Obesity, unspecified; I25.2 Old myocardial infarction; Z79.899 Other long term (current) drug therapy; Z95.5 Presence of coronary angioplasty implant and graft; Z91.040 Latex allergy status; Z87.11 Personal history of peptic ulcer disease; Z79.82 Long term (current) use of aspirin
CPT/HCPCS: 74177; 80048; 80053; 81003; 81015; 83690; 85025; 85027; 87086; 87502; 93005; 96361; 96374; 96375; 99285; Q9967